=== PATIENT | female | born 1955 | race African-American/Black ===

== ENCOUNTER 2016-06-01 18:35 | Inpatient (IN) | payer MEDICAID ==
[~2016-06-01] VITALS: Ht 154.9 cm; Wt 56.7 kg
[2016-06-01] MEDS ORDERED: ALBUTEROL SULF 2.5 MG/0.5ML(0.5%) NEB SOLN NEB ONE (22:00)
[2016-06-01] MEDS ORDERED: IPRATROPIUM BROM 0.5 MG/2.5ML INH SOL NEB ONE (22:00)
[2016-06-01] MEDS ORDERED: methylPREDNISolone SOD SUCC 125 MG/2 ML VL IV ONE (22:00)
[2016-06-01] MEDS ORDERED: SODIUM CHLORIDE 0.9% 1,000 ML IV ONE (22:00)
[2016-06-01 23:27] LABS: Basophils # (auto) 0 uL; DEFINITIVE VIEW TRANSMISSION; Eosinophils # (auto) 0.1 uL; Hemoglobin 9.8 g/dL (12.2-16.2); Lymphocytes # (auto) 0.8 uL; Lymphocytes % (auto) 11.7 % (10.0-50.0); Mean Corpuscular Hemoglobin 26.5 pg (28.0-32.0); Mean Corpuscular Hgb Conc. 31.6 g/dL (32.0-36.0); Mean Platelet Volume 7.3 fL (7.4-10.4); Monocytes # (auto) 0.6 uL; Monocytes % (auto) 8.5 % (0.0-12.0); Neutrophils # (auto) 5.5 uL; Neutrophils % (auto) 78.8 % (37.0-80.0); Platelet Count (auto) 204 10^3/uL (140-450); Red Cell Distribution Width 16.3 % (11.6-16.0)
[2016-06-02] VITALS (7 sets, daily range): BP systolic 144–190; BP diastolic 82–110
[2016-06-02 02:52] LABS: Urine Bilirubin Negative (Negative); Urine Color Orange (Yellow); Urine Glucose Normal (Normal); Urine Hyaline Cast FEW /lpf (0 - 2); Urine Ketone Negative (Negative); Urine Mucus FEW (None Seen); Urine Nitrite Negative (Negative); Urine RBC 26 /hpf (0 - 4); Urine Squamous Epithelial Cell FEW /hpf (<5)
[2016-06-02 02:54] LABS: Urine Blood 1+ /uL (Negative)
[2016-06-02 03:45] LABS: Albumin 2.6 g/dL (3.4-5.0); BUN/Creatinine Ratio 16.4; Bilirubin, Total 0.3 mg/dL (0.2-1.0); Calcium 11.7 mg/dL (8.5-10.1); Potassium 3.9 mmol/L (3.5-5.1); Total Protein 7.3 g/dL (6.4-8.2)
[2016-06-02] MEDS: SODIUM CHLORIDE 0.9% 1,000 ML IV SCH ×4 (05:44→20:48)
[2016-06-02] MEDS ORDERED: NITROGLYCERIN 0.4 MG SL TAB SL PRN (05:45)
[2016-06-02] MEDS ORDERED: MORPHINE SULF INJ 2 MG/ML SYRINGE 1ML IV PRN (05:45)
[2016-06-02] MEDS ORDERED: cloNIDine HCL 0.1 MG TAB PO ONE (07:00)
[2016-06-02] MEDS: cefTRIAXone 1GM/50ML D5W 50 ML IV SCH ×2 (08:09→08:14)
[2016-06-02] MEDS: FERROUS SULFATE 325 MG TAB PO SCH ×3 (08:09→18:16)
[2016-06-02] MEDS ORDERED: ENOXAPARIN SOD 30 MG/0.3 ML SYRINGE SC SCH (10:00)
[2016-06-02] MEDS: PANTOPRAZOLE SODIUM 40 MG/10 ML VIAL IV SCH (10:00)
[2016-06-02] MEDS: IPRATROPIUM BROM 0.5 MG/2.5ML INH SOL NEB PRN ×4 (10:46→22:31)
[2016-06-02] MEDS: ALBUTEROL SULF 2.5 MG/0.5ML(0.5%) NEB SOLN NEB PRN ×4 (10:46→22:31)
[2016-06-02] MEDS: ENOXAPARIN SOD 40 MG/0.4 ML SYRINGE SC SCH (11:51)
[2016-06-02] MEDS: methylPREDNISolone SOD SUCC 125 MG/2 ML VL IV SCH (11:51)
[2016-06-02] MEDS: cloNIDine HCL 0.1 MG TAB PO PRN (20:48)
[2016-06-02] MEDS ORDERED: QUET200T3 PO (20:55)
[2016-06-03] VITALS (7 sets, daily range): BP systolic 121–172; BP diastolic 74–98
[2016-06-03] MEDS: ALBUTEROL SULF 2.5 MG/0.5ML(0.5%) NEB SOLN NEB PRN ×3 (02:50→15:19)
[2016-06-03] MEDS: IPRATROPIUM BROM 0.5 MG/2.5ML INH SOL NEB PRN ×3 (02:50→15:19)
[2016-06-03] MEDS: cloNIDine HCL 0.1 MG TAB PO PRN (05:43)
[2016-06-03 05:53] LABS: Basophils # (auto) 0 uL; DEFINITIVE VIEW TRANSMISSION; Eosinophils # (auto) 0 uL; Hematocrit 28.5 % (36.0-46.0); Hemoglobin 8.9 g/dL (12.2-16.2); Lymphocytes # (auto) 0.2 uL; Lymphocytes % (auto) 1.9 % (10.0-50.0); Mean Corpuscular Hemoglobin 26.2 pg (28.0-32.0); Mean Corpuscular Hgb Conc. 31.1 g/dL (32.0-36.0); Mean Corpuscular Volume 84.3 fL (80.0-100.0); Mean Platelet Volume 7.1 fL (7.4-10.4); Monocytes # (auto) 0.6 uL; Monocytes % (auto) 7.1 % (0.0-12.0); Platelet Count (auto) 234 10^3/uL (140-450); White Blood Cell 8.8 10^3/uL (4.4-10.8)
[2016-06-03 06:07] LABS: Albumin 2.7 g/dL (3.4-5.0); Calcium 11.5 mg/dL (8.5-10.1); Potassium 4.2 mmol/L (3.5-5.1)
[2016-06-03 06:10] LABS: BUN/Creatinine Ratio 23.6
[2016-06-03 06:14] LABS: Bilirubin, Total 0.2 mg/dL (0.2-1.0); Total Protein 7.4 g/dL (6.4-8.2)
[2016-06-03] MEDS: cefTRIAXone 1GM/50ML D5W 50 ML IV SCH (10:42)
[2016-06-03] MEDS: PANTOPRAZOLE SODIUM 40 MG/10 ML VIAL IV SCH (10:42)
[2016-06-03] MEDS: methylPREDNISolone SOD SUCC 125 MG/2 ML VL IV SCH (10:42)
[2016-06-03] MEDS: SODIUM CHLORIDE 0.9% 1,000 ML IV SCH ×2 (10:43→14:57)
[2016-06-03] MEDS: ENOXAPARIN SOD 40 MG/0.4 ML SYRINGE SC SCH (10:43)
[2016-06-03] MEDS: FERROUS SULFATE 325 MG TAB PO SCH (18:00)
== END 2016-06-03 18:30 | disposition hospice, home (50) | DRG 136 ==
LOC: ER 18:41 → OVERFLOW 18:42 → TELE-WESTW 06-02 06:22
PROVIDERS: ADMIT Family Medicine; ATTEND Internal Medicine Pulmonary Disease
DX: C34.92 Malignant neoplasm of unspecified part of left bronchus or lung (principal); J18.9 Pneumonia, unspecified organism; E44.0 Moderate protein-calorie malnutrition; N39.0 Urinary tract infection, site not specified; D63.8 Anemia in other chronic diseases classified elsewhere; I10 Essential (primary) hypertension; E11.9 Type 2 diabetes mellitus without complications; F17.210 Nicotine dependence, cigarettes, uncomplicated; Z68.23 Body mass index [BMI] 23.0-23.9, adult; Z92.3 Personal history of irradiation; Z92.21 Personal history of antineoplastic chemotherapy
CPT/HCPCS: 36415; 71010; 80053; 81001; 85025; 87040; 93005; 94640; 96361; 96374; C9113; J0696